=== PATIENT | female | born 1995 | race American Indian/Alaskan Native ===

== ENCOUNTER 2019-10-05 23:45 | Emergency (ER) | payer OTHER ==
--- NOTE | 2019-10-06 00:48 | XRay Report ---
RIGHT SHOULDER 2 VIEW(S) INDICATION / CLINICAL INFORMATION: Right shoulder pain. SP fall COMPARISON: None available. FINDINGS: BONES / JOINT(S): The right Humeral head is dislocated anteroinferiorly with respect to glenoid. Post reduction radiographs recommended. No significant arthritis. SOFT TISSUES: No significant abnormality. ADDITIONAL FINDINGS: None. Signer Name: Mukund Meeks MD Signed: 10/06/2019 12:44 AM Workstation Name: [id number]
[2019-10-06] MEDS ORDERED: propofoL 200 MG/20 ML VIAL IV ONE ×2 (01:11→01:14)
[2019-10-06] MEDS ORDERED: KETAMINE 500 MG/5 ML VIAL MDV IV ONE (01:11)
[2019-10-06] MEDS ORDERED: ONDANSETRON 4 MG/2 ML INJ IV ONE (01:11)
--- NOTE | 2019-10-06 01:12 | Emergency Department Report ---
Upper Extremity - HPI Chief Complaint: Shoulder Injury Stated Complaint: FALL/DISLOCATED RIGHT SHOULDER Time Seen by Provider: 10/06/19 01:04 Upper Extremity: Right Shoulder Occurred When: Today Mechanism: Twist Symptoms: Yes Pain with Movement, Yes Deformity, Yes Limited Range of Movement, No Numbness, No Weakness, No Swelling, No Bruising/Ecchymosis, No Laceration or Abrasion Other History: The patient is a 23-year-old female, who is left-hand dominant, states that she is not , with a history of 7 lifetime shoulder dislocations. All of these dislocations on the right shoulder by her history. She presents to the ER today with accidental right-sided shoulder dislocation. She was walking at home, slipped, reached her right hand to stabilize her, and dislocated her right shoulder. She denies other injuries and denies other complaints. Her right shoulder pain is sharp, throbbing and aching, increases with palpation, range of motion, decreases with rest. It does not radiate anywhere. There is no elbow pain, wrist pain or hand pain. There is no endorsement of weakness and or numbness. Her last time of oral intake is at 4:00 in the preceding afternoon ED Review of Systems ROS: Stated complaint: FALL/DISLOCATED RIGHT SHOULDER Other details as noted in HPI Constitutional: denies: fever Respiratory: denies: cough Cardiovascular: denies: chest pain Gastrointestinal: denies: abdominal pain Musculoskeletal: arthralgia, myalgia Neurological: denies: numbness, paresthesias ED Past Medical Hx - Past Medical History Previous Medical History?: No - Surgical History Past Surgical History?: No - Social History Smoking Status: Never Smoker Substance Use Type: None - Medications Home Medications: Home Medications Medication Instructions Recorded Confirmed Last Taken Type Acetaminophen [Non-Aspirin Extra 500 mg PO Q6HR PRN #30 tablet 10/06/19 Unknown Rx Strength] Ibuprofen [Motrin] 600 mg PO Q8H PRN #30 tablet 10/06/19 Unknown Rx Upper Extremity Exam - Exam General: Vital signs noted. No distress. Alert and acting appropriately. No facial droop. Tongue midline. Extraocular movements intact bilaterally. Facial sensation intact to light touch in V1, V2, V3 distribution bilaterally. 5 and a 5 strength in 4 extremities. Sensation intact to light touch in 4 extremities. 2+ pulses noted in the bilateral upper and lower extremities. There is no palpable cord. negative Homans sign. Muscular compartments are soft. The pelvis is stable. There is a palpable defect in the right proximal shoulder, consistent with shoulder dislocation. Finger intrinsics in the right upper extremity are intact. Sensation is intact to light touch in the bilateral deltoid, median, radial, ulnar distribution. Head and Torso: No HEENT Abnormality, No Neck Tenderness, No Chest/Lungs Abnormality, No Abdominal Tenderness, No Back Tenderness Shoulder Exam: Yes Shoulder Tenderness (There is right-sided shoulder tenderness. There is no left-sided shoulder tender), Yes Shoulder Deformity (There is a right-sided shoulder deformity.), No Clavicle Tenderness, No Normal Range of Motion in Shoulder (Range of motion in the left shoulder within normal limits. Right-sided shoulder range of motion is impaired), No AC Joint Tenderness Arm Exam: No Arm/Humerus Tenderness, No Arm Deformity Elbow: Yes Normal Range of Motion in Elbow, No Elbow Tenderness, No Elbow Deformity Forearm: No Forearm Tenderness, No Forearm Deformity, No Pain with Pronation, No Pain with Supination Wrist: Yes Normal ROM in Wrist, No Wrist Tenderness, No Wrist Deformity, No Snuffbox Tenderness, No Pain with Axial Thumb Compression Hand: Yes Normal ROM in Digit(s), No Hand Tenderness, No Hand Deformity, No Digit Tenderness, No Digit(s) Deformity, No Tendon Dysfunction CMS Exam: Yes Normal Distal Pulses, Yes Normal Capillary Refill, Yes Normal Distal Sensation, No Broken Skin ED Course Vital Signs 10/06/19 00:19 Temperature 98.8 F Pulse Rate 89 Respiratory 18 Rate Blood Pressure 113/79 O2 Sat by Pulse 100 Oximetry - Moderate Sedation Indications: fracture/dislocation redu ASA Class: I Mallampati Airway Score: 1 Time of Last PO Intake: 16:00 (October 05, 1999) Preparation: cardiac cath technician applied, pulse oximeter, capnometry used, supplemental O2 applied Ketamine: IV Ketamine Dose: 50 IV Propofol Dose (mgs): 50 Complications: none Patient Tolerated Procedure: well Additional Comments: Risks, benefits, alternatives of moderate sedation for close reduction of right- sided shoulder dislocation were discussed with the patient. The patient signed written informed consent for moderate sedation. Patient placed on the monitor, and ketamine and propofol were administered, nursing team present, please see their documentation, respiratory therapy present. - Orthopedic Joint Reduction Joint #1 Consent Obtained: verbal consent, written consent, emergent situation Time Out Performed: Yes Side: right Joint Reduction Location: shoulder Analgesia: moderate sedation Technique Used: direct manipulation Post-Reduction Neuro Exam: intact Post-Reduction Vascular Exam: intact Post Reduction X-Ray Obtained: Yes Post Reduction X-Ray Results: reduced Splint Applied: Yes Patient Tolerated Procedure: well - Orthopedic Splinting/Casting Injury #1 Side: right Upper Extremity Injury Location: shoulder Upper Extremity Immobilizer: sling/shoulder immobilize ED Medical Decision Making - Radiology Data Radiology results: report reviewed, image reviewed Print Report Referring Physician: HEBER SCOTT Patient Name: MOISES VALLADARES Date of : 1995 Sex: Female Report Date: 2019-10-06 Report Status: Finalized Findings [address] [address] XRay Report Signed Patient: MOISES VALLADARES MR#: [id number] 71 : 1995 Acct:[id number] Age/Sex: 23 / F ADM Date: 10/05/19 Loc: ED Attending Dr: Ordering Physician: HEBER SCOTT MD Date of Service: 10/06/19 Procedure(s): XR shoulder 2+V RT Accession Number(s): [id number] cc: HEBER SCOTT MD Fluoro Time In Minutes: RIGHT SHOULDER 2 VIEW(S) 1:32 AM INDICATION / CLINICAL INFORMATION: Post reduction COMPARISON: Right shoulder x-ray 12:41 AM same day FINDINGS: BONES / JOINT(S): No acute fracture or subluxation. The humeral head has been reduced and now projects in expected position with respect to glenoid. No significant arthritis. SOFT TISSUES: No significant abnormality. ADDITIONAL FINDINGS: None. Signer Name: Mukund Meeks MD Signed: 10/06/2019 1:55 AM Workstation Name: [id number] Transcribed By: TL Dictated By: Mukund Meeks MD Electronically Authenticated By: Mukund Meeks MD Signed Date/Time: 10/06/19154 DD/ 4 TD/TT: Print Report Referring Physician: ALEN ACOSTA Patient Name: MOISES VALLADARES Date of : 1995 Sex: Female Report Date: 2019-10-06 Report Status: Finalized Findings [facility] [address] [place] [address] XRay Report Signed Patient: MOISES VALLADARES MR#: [id number] 71 : 1995 Acct:[id number] Age/Sex: 23 / F ADM Date: 10/05/19 Loc: ED Attending Dr: Ordering Physician: ALEN ACOSTA MD Date of Service: 10/06/19 Procedure(s): XR shoulder 2+V RT Accession Number(s): [id number] cc: ED MD KARLA Fluoro Time In Minutes: RIGHT SHOULDER 2 VIEW(S) INDICATION / CLINICAL INFORMATION: Right shoulder pain. SP fall COMPARISON: None available. FINDINGS: BONES / JOINT(S): The right Humeral head is dislocated anteroinferiorly with respect to glenoid. Postreduction radiographs recommended. No significant arthritis. SOFT TISSUES: No significant abnormality. ADDITIONAL FINDINGS: None. Signer Name: Mukund Meeks MD Signed: 10/06/2019 12:44 AM Workstation Name: [id number] Transcribed By: TL Dictated By: Mukund Meeks MD Electronically Authenticated By: Mukund Meeks MD Signed Date/Time: 10/06/1943 DD/ TD/TT: - Medical Decision Making Vital Signs 10/06/19 10/06/19 10/06/19 00:19 01:21 01:31 Temperature 98.8 F Pulse Rate 89 60 Pulse Rate [ Intra-Procedure ] Pulse Rate [ Post-Procedure] Pulse Rate [Pre 60 -Procedure] Respiratory 18 13 Rate Respiratory Rate [Intra- Procedure] Respiratory Rate [Post- Procedure] Respiratory 26 H Rate [Pre- Procedure] Blood Pressure 113/79 Blood Pressure [Intra- Procedure] Blood Pressure 132/102 [Left] Blood Pressure [Post-Procedure ] Blood Pressure 144/102 [Pre-Procedure] O2 Sat by Pulse 100 100 Oximetry O2 Sat by Pulse Oximetry [ Intra-Procedure ] O2 Sat by Pulse Oximetry [Post -Procedure] O2 Sat by Pulse 100 Oximetry [Pre- Procedure] 10/06/19 10/06/19 10/06/19 01:34 01:40 01:45 Temperature Pulse Rate Pulse Rate [ 76 Intra-Procedure ] Pulse Rate [ 70 59 L Post-Procedure] Pulse Rate [Pre -Procedure] Respiratory Rate Respiratory 19 Rate [Intra- Procedure] Respiratory 14 14 Rate [Post- Procedure] Respiratory Rate [Pre- Procedure] Blood Pressure Blood Pressure 176/114 [Intra- Procedure] Blood Pressure [Left] Blood Pressure 156/107 149/93 [Post-Procedure ] Blood Pressure [Pre-Procedure] O2 Sat by Pulse Oximetry O2 Sat by Pulse 100 Oximetry [ Intra-Procedure ] O2 Sat by Pulse 100 100 Oximetry [Post -Procedure] O2 Sat by Pulse Oximetry [Pre- Procedure] 10/06/19 10/06/19 01:49 02:00 Temperature Pulse Rate 78 Pulse Rate [ Intra-Procedure ] Pulse Rate [ 58 L Post-Procedure] Pulse Rate [Pre -Procedure] Respiratory 18 Rate Respiratory Rate [Intra- Procedure] Respiratory 13 Rate [Post- Procedure] Respiratory Rate [Pre- Procedure] Blood Pressure Blood Pressure [Intra- Procedure] Blood Pressure [Left] Blood Pressure 130/88 [Post-Procedure ] Blood Pressure [Pre-Procedure] O2 Sat by Pulse Oximetry O2 Sat by Pulse Oximetry [ Intra-Procedure ] O2 Sat by Pulse 100 Oximetry [Post -Procedure] O2 Sat by Pulse Oximetry [Pre- Procedure] Differential diagnosis, including but not limited to: Recurrent right-sided shoulder dislocation Assessment and plan: 23-year-old female who is afebrile with reassuring vital signs, clinically sober, states that she is not , with recurrent right- sided shoulder dislocation without evidence of neurovascular compromise. She signed consent for moderate sedation, and the right shoulder was easily reduced without complication. She has recovered well from her moderate sedation, sensation remains intact to light touch in the deltoid, median, radial, ulnar distribution post procedurally, and she remains neurovascularly intact. We have counseled the patient on the need to follow-up with outpatient orthopedics and/or sports medicine to exclude soft tissue/rotator cuff injury. The patient verbalizes understanding. She has been observed in this ER for hours, and is clinically suitable for discharge at this point in time Critical care attestation.: If time is entered above; I have spent that time in minutes in the direct care of this critically ill patient, excluding procedure time. ED Disposition Clinical Impression: Shoulder dislocation Qualifiers: Encounter type: initial encounter Laterality: right Qualified Code(s): S43.004A - Unspecified dislocation of right shoulder joint, initial encounter Disposition: DC-01 TO HOME OR SELFCARE Is pt being admited?: No Does the pt Need Aspirin: No Condition: Stable Instructions: Shoulder Dislocation (ED), Moderate Sedation (ED) Additional Instructions: Rest, avoid heavy lifting, and avoid strenuous physical activities. Take the pain medications as needed and directed. Keep the shoulder sling in place, and please follow-up with an orthopedist or sports medicine physician by the end of the week. Do not take the shoulder sling off until cleared to do so by an orthopedist. Shoulder dislocation has been reduced, but the patient may have undiagnosed rotator cuff/soft tissue injury, which if not evaluated by an orthopedist or sports medicine physician, may predispose to disability, loss of quality of life, loss of functionality in the right upper extremity. Please return to the emergency room right away with new pain, worsening pain, migration of pain, projectile vomiting, change in mental status, confusion, inability to tolerate liquid feeds, new, worsened or different symptoms not present on the initial emergency room evaluation. Please do not use the right upper extremity for any activities until cleared to do so by an orthopedist or sports medicine physician. Referrals: MIGUEL ROQUE MD [Staff Physician] - 3-5 Days [facility] [Provider Group] - 3-5 Days Forms: Work/School Release Form(ED)
[2019-10-06] MEDS ORDERED: SODIUM CHLORIDE 0.9% 1000 ML 1,000 ML ONE (01:14)
[2019-10-06] MEDS ORDERED: KETAMINE 500 MG/5 ML VIAL MDV ONE (01:14)
[2019-10-06] MEDS ORDERED: SODIUM CHLORIDE 0.9% 500 ML 500 ML IV ONE (01:25)
--- NOTE | 2019-10-06 02:00 | XRay Report ---
RIGHT SHOULDER 2 VIEW(S) 1:32 AM INDICATION / CLINICAL INFORMATION: Post reduction COMPARISON: Right shoulder x-ray 12:41 AM same day FINDINGS: BONES / JOINT(S): No acute fracture or subluxation. The humeral head has been reduced and now project s in expected position with respect to glenoid. No significant arthritis. SOFT TISSUES: No significant abnormality. ADDITIONAL FINDINGS: None. Signer Name: Mukund Meeks MD Signed: 10/06/2019 1:55 AM Workstation Name: [email or web address]
[2019-10-06 03:05] VITALS: BP 137/83
== END 2019-10-06 03:15 | disposition home or self-care (01) ==
LOC: ED 23:45
DX: S43.004A Unspecified dislocation of right shoulder joint, initial encounter (principal); W01.0XXA Fall on same level from slipping, tripping and stumbling without subsequent striking against object, initial encounter; Y93.01 Activity, walking, marching and hiking; Y92.89 Other specified places as the place of occurrence of the external cause; Y99.8 Other external cause status
CPT/HCPCS: 23650; 73030; 96374; 99283; J2405; J2704; J7030

== ENCOUNTER 2019-10-14 09:39 | Emergency (ER) | payer OTHER ==
[2019-10-14 09:58] VITALS: BP 124/82
== END 2019-10-14 12:11 | disposition left against medical advice (07) ==
LOC: ED 09:39
DX: R19.7 Diarrhea, unspecified (principal); Z53.21 Procedure and treatment not carried out due to patient leaving prior to being seen by health care provider

== ENCOUNTER 2019-12-24 10:11 | Emergency (ER) | payer OTHER ==
[2019-12-24 10:17] VITALS: BP 127/83
[2019-12-24 12:19] LABS: Basophils % (Auto) 0.4 % (0.0-1.8); Eosinophils % (Auto) 0.4 % (0.0-4.3); Hematocrit 33.6 % (30.3-42.9); Hemoglobin 10.6 gm/dl (10.1-14.3); Lymphocytes # (Auto) 1.3 K/mm3 (1.2-5.4); Lymphocytes % (Auto) 25.8 % (13.4-35.0); Mean Corpuscular HGB Conc 32 % (30-34); Mean Corpuscular Volume 75 fl (79-97); Monocytes # (Auto) 0.4 K/mm3 (0.0-0.8); Monocytes % (Auto) 8.2 % (0.0-7.3); Platelet Count 166 K/mm3 (140-440); Red Blood Count 4.45 M/mm3 (3.65-5.03)
[2019-12-24] MEDS ORDERED: ACETAMINOPHEN 500 MG TAB PO ONE (12:19)
--- NOTE | 2019-12-24 12:28 | Emergency Department Report ---
ED HPI - General Chief complaint: Abdominal Pain Stated complaint: PREG BLEEDING Time Seen by Provider: 12/24/19 11:46 Source: patient Mode of arrival: Ambulatory Limitations: No Limitations - History of Present Illness Initial comments: This is a 23-year-old female nontoxic, well nourished in appearance, no acute signs of distress presents to the ED with c/o of vaginal bleeding and pelvic pain x1 day. Patient stated yesterday she noticed vaginal bleeding this morning and seen urgent care which she was then told she is . Pt was sent by urgent care for Ultrasound. Patient denies any abdominal pain. Pt is unsure how many weeks she is. Patient denies any vaginal discharge or foul odor. Patient denies any nausea, vomiting, chest pain, shortness of breathe, fever, chills, headache, stiff neck, numbness, tingling. Patient denies any urinary symptoms. Patient denies any allergies or PMH. MD Complaint: vaginal bleeding, other (pelvic pain) -: This morning Location: pelvis Radiation: none Severity: mild Severity scale (0 -10): 8 Quality: cramping, aching Consistency: intermittent Improves with: none Worsens with: none Associated symptoms: vaginal bleeding, other (pelvic pain). denies: nausea/vomiting, vaginal discharge, abdominal pain, dysuria, headache, vision changes, malaise, dysparuenia, rash, seizure, shortness of breath, syncope, weakness Vaginal bleeding: light :: Yes Pre- care: none - Related Data Previous Rx's Medication Instructions Recorded Last Taken Type Acetaminophen [Non-Aspirin Extra 500 mg PO Q6HR PRN #30 tablet 10/06/19 Unknown Rx Strength] Ibuprofen [Motrin] 600 mg PO Q8H PRN #30 tablet 10/06/19 Unknown Rx Allergies Allergy/AdvReac Type Severity Reaction Status Date / Time No Known Allergies Allergy Unverified 10/06/19 00:21 ED Review of Systems ROS: Stated complaint: PREG BLEEDING Other details as noted in HPI Constitutional: denies: chills, fever Eyes: denies: eye pain, eye discharge, vision change ENT: denies: ear pain, throat pain Respiratory: denies: cough, shortness of breath, wheezing Cardiovascular: denies: chest pain, palpitations Endocrine: no symptoms reported Gastrointestinal: denies: abdominal pain, nausea, diarrhea Genitourinary: abnormal menses. denies: urgency, dysuria, discharge Musculoskeletal: denies: back pain, joint swelling, arthralgia Skin: denies: rash, lesions Neurological: denies: headache, weakness, paresthesias Psychiatric: denies: anxiety, depression Hematological/Lymphatic: denies: easy bleeding, easy bruising ED Past Medical Hx - Past Medical History Previous Medical History?: Yes - Surgical History Past Surgical History?: No - Social History Smoking Status: Never Smoker Substance Use Type: None - Medications Home Medications: Home Medications Medication Instructions Recorded Confirmed Last Taken Type Acetaminophen [Non-Aspirin Extra 500 mg PO Q6HR PRN #30 tablet 10/06/19 Unknown Rx Strength] Ibuprofen [Motrin] 600 mg PO Q8H PRN #30 tablet 10/06/19 Unknown Rx ED Physical Exam - General Limitations: No Limitations General appearance: alert, in no apparent distress - Head Head exam: Present: atraumatic, normocephalic - Eye Eye exam: Present: normal appearance - Neck Neck exam: Present: normal inspection, full ROM. Absent: tenderness, meningismus, lymphadenopathy - Respiratory Respiratory exam: Present: normal lung sounds bilaterally. Absent: respiratory distress, wheezes, rales, rhonchi, stridor, chest wall tenderness, accessory muscle use, decreased breath sounds, prolonged expiratory - Cardiovascular Cardiovascular Exam: Present: regular rate, normal rhythm, normal heart sounds. Absent: bradycardia, tachycardia, irregular rhythm, systolic murmur, diastolic murmur, rubs, gallop - GI/Abdominal GI/Abdominal exam: Present: soft, normal bowel sounds. Absent: distended, tenderness, guarding, rebound, rigid, diminished bowel sounds - Extremities Exam Extremities exam: Present: normal inspection, full ROM - Back Exam Back exam: Present: normal inspection, full ROM. Absent: tenderness, CVA tenderness (R), CVA tenderness (L), muscle spasm, paraspinal tenderness, vertebral tenderness, rash noted - Neurological Exam Neurological exam: Present: alert, oriented X3, normal gait - Psychiatric Psychiatric exam: Present: normal affect, normal mood - Skin Skin exam: Present: warm, dry, intact, normal color. Absent: rash ED Course Vital Signs 12/24/19 10:12 Temperature 98.2 F Pulse Rate 81 Respiratory 20 Rate Blood Pressure 127/83 Blood Pressure 127/81 [Right] O2 Sat by Pulse 100 Oximetry - Reevaluation(s) Reevaluation #1: 12/24/19 12:28 Patient is speaking in full sentences with no signs of distress noted. ED Medical Decision Making - Lab Data Result diagrams: 12/24/19 12:01 Lab Results 12/24/19 12/24/19 12/24/19 Range/Units 12:01 12:01 12:01 WBC 5.2 (4.5-11.0) K/mm3 RBC 4.45 (3.65-5.03) M/mm3 Hgb 10.6 (10.1-14.3) gm/dl Hct 33.6 (30.3-42.9) % MCV 75 L (79-97) fl MCH 24 L (28-32) pg MCHC 32 (30-34) % RDW 16.0 H (13.2-15.2) % Plt Count 166 (140-440) K/mm3 Lymph % (Auto) 25.8 (13.4-35.0) % [place] % (Auto) 8.2 H (0.0-7.3) % Eos % (Auto) 0.4 (0.0-4.3) % Baso % (Auto) 0.4 (0.0-1.8) % Lymph # (Auto) 1.3 (1.2-5.4) K/mm3 [place] # (Auto) 0.4 (0.0-0.8) K/mm3 Eos # (Auto) 0.0 (0.0-0.4) K/mm3 Baso # (Auto) 0.0 (0.0-0.1) K/mm3 Seg Neutrophils % 65.2 (40.0-70.0) % Seg Neutrophils # 3.4 (1.8-7.7) K/mm3 HCG, Quant 2930 H (0-4) mIU/mL Urine Color (Yellow) Urine Turbidity (Clear) Urine pH (5.0-7.0) Ur Specific Manning (1.003-1.030) Urine Protein (Negative) mg/dL Urine Glucose (UA) (Negative) mg/dL Urine Ketones (Negative) mg/dL Urine Blood (Negative) Urine Nitrite (Negative) Urine Bilirubin (Negative) Urine Urobilinogen (<2.0) mg/dL Ur Leukocyte Esterase (Negative) Urine WBC (Auto) (0.0-6.0) /HPF Urine RBC (Auto) (0.0-6.0) /HPF Urine Mucus /HPF Blood Type O POSITIVE 12/24/19 Range/Units 13:38 WBC (4.5-11.0) K/mm3 RBC (3.65-5.03) M/mm3 Hgb (10.1-14.3) gm/dl Hct (30.3-42.9) % MCV (79-97) fl MCH (28-32) pg MCHC (30-34) % RDW (13.2-15.2) % Plt Count (140-440) K/mm3 Lymph % (Auto) (13.4-35.0) % [place] % (Auto) (0.0-7.3) % Eos % (Auto) (0.0-4.3) % Baso % (Auto) (0.0-1.8) % Lymph # (Auto) (1.2-5.4) K/mm3 [place] # (Auto) (0.0-0.8) K/mm3 Eos # (Auto) (0.0-0.4) K/mm3 Baso # (Auto) (0.0-0.1) K/mm3 Seg Neutrophils % (40.0-70.0) % Seg Neutrophils # (1.8-7.7) K/mm3 HCG, Quant (0-4) mIU/mL Urine Color Red (Yellow) Urine Turbidity Cloudy (Clear) Urine pH 6.0 (5.0-7.0) Ur Specific Manning 1.021 (1.003-1.030) Urine Protein 100 mg/dl (Negative) mg/dL Urine Glucose (UA) Neg (Negative) mg/dL Urine Ketones 80 (Negative) mg/dL Urine Blood Lg (Negative) Urine Nitrite Neg (Negative) Urine Bilirubin Neg (Negative) Urine Urobilinogen < 2.0 (<2.0) mg/dL Ur Leukocyte Esterase Tr (Negative) Urine WBC (Auto) 6.0 (0.0-6.0) /HPF Urine RBC (Auto) > 182.0 (0.0-6.0) /HPF Urine Mucus Few /HPF Blood Type - Radiology Data Referring Physician: NOLA ZIMMERMAN Patient Name: MOISES VALLADARES Date of : 1995 Sex: Female Report Date: 2019-12-24 Report Status: Finalized [facility] [address] [id number] Ultrasound Report Signed Patient: MOISES VALLADARES MR#: [id number] 71 : 1995 Acct:[id number] Age/Sex: 23 / F ADM Date: 12/24/19 Loc: ED Attending Dr: Ordering Physician: NOLA ZIMMERMAN NP Date of Service: 12/24/19 Procedure(s): US OB transvaginal Accession Number(s): [id number] cc: NOLA LEMA NP US OB transvaginal INDICATION / CLINICAL INFORMATION: pelvic pain with vaginal bleeding. COMPARISON: None available. FINDINGS: Endometrium in the uterine fundus measures 9 mm, and there is no intrauterine . An area of complex echogenicity is demonstrated in the lower uterine segment, with no vascular flow and no heartbeat. Left ovary is normal. Right ovary cannot be identified. No abnormal adnexal mass or free fluid. IMPRESSION: 1. Findings are most suggestive of incomplete . Signer Name: Bryce Salmeron MD Signed: 12/24/2019 5:43 PM Workstation Name: [id number] Transcribed By: TM Dictated By: Bryce Salmeron MD Electronically Authenticated By: Bryce Salmeron MD Signed Date/Time: 12/24/19 174 DD/ 38 TD/TT: - Medical Decision Making This is a 23-year-old female presents with spontaneous incomplete miscarriage. Patient is stable and was examined by me. Normal abdominal exam. US OB obtained and dictated by the radiologist. Ua obtained. Quantative serum test obtained. Patient notified of the US report with no questions noted by the patient. Patient was instructed f/u with [facility] or return to the ED tomorrow for repeat testing with possible US. RH factor positive. Labs within normal li mits. Patient was given strict precautions and education on ectopic . At time of discharge, the patient does not seem toxic or ill in appearance. No acute signs of distress noted. Patient agrees to discharge treatment plan of care. No further questions noted by the patient. Critical care attestation.: If time is entered above; I have spent that time in minutes in the direct care of this critically ill patient, excluding procedure time. ED Disposition Clinical Impression: Incomplete miscarriage Disposition: DC-01 TO HOME OR SELFCARE Is pt being admited?: No Does the pt Need Aspirin: No Condition: Stable Instructions: Spontaneous Miscarriage (ED) Additional Instructions: Follow-up with a OBGYN tomorrow due to incomplete miscarriage or if symptoms worsen and continue return to emergency room as soon as possible. Referrals: PRIMARY CAREMD [Primary Care Provider] - 3-5 Days [facility] [Provider Group] - 12/25/19 [facility] [Provider Group] - 12/25/19 Forms: Work/School Release Form(ED)
[2019-12-24 15:28] LABS: Bilirubin,Urine NEG (Negative); Blood,Urine LG (Negative); Color,Urine Red (Yellow); Mucus,Urine FEW /HPF; Urobilinogen,Urine < 2.0 mg/dL (<2.0)
[2019-12-24 15:29] LABS: RBC,Urine > 182.0 /HPF (0.0-6.0)
--- NOTE | 2019-12-24 17:48 | Ultrasound Report ---
US OB transvaginal INDICATION / CLINICAL INFORMATION: pelvic pain with vaginal bleeding. COMPARISON: None available. FINDINGS: Endometrium in the uterine fundus measures 9 mm, and there is no intrauterine . An area of c omplex echogenicity is demonstrated in the lower uterine segment, with no vascular flow and no heartbeat. Left ovary is normal. Right ovary cannot be identified. No abnormal adnexal mass or free fluid. IMPRESSION: 1. Findings are most suggestive of incomplete . Signer Name: Bryce Salmeron MD Signed: 12/24/2019 5:43 PM Workstation Name: [email or web address]
--- NOTE | 2019-12-25 00:33 | Ultrasound Report ---
US OB <= 14 weeks fetus INDICATION / CLINICAL INFORMATION: pelvic pain with vaginal bleeding. COMPARISON: None available. FINDINGS: Transabdominal and transvaginal ultrasound obtained. Endometrium in the uterine fundus measures 9 mm, and there is no intrauterine . An area of c omplex echogenicity is demonstrated in the lower uterine segment, with no vascular flow and no heartbeat. Left ovary is normal. Right ovary cannot be identified. No abnormal adnexal mass or free fluid. IMPRESSION: 1. Findings are most suggestive of incomplete . Signer Name: Chicho Lee MD Signed: 12/25/2019 12:28 AM Workstation Name: [id number]
== END 2019-12-24 18:03 | disposition home or self-care (01) ==
LOC: ED 10:11
DX: O03.4 Incomplete spontaneous abortion without complication (principal)
CPT/HCPCS: 36415; 76801; 76817; 81001; 84702; 85025; 86900; 86901